=== PATIENT | male | born 1965 | race Caucasian/White ===

== ENCOUNTER 2016-12-18 15:09 | Emergency (ER) | payer OTHER ==
[~2016-12-18] VITALS: Ht 180.3 cm; Wt 82.4 kg
[~2016-12-18 15:09] MED LIST: CELEXA20 MG PO; CLONAZEPAM0.5 MG PO; EFFEXOR75 MG PO; LOPRESSOR25 MG PO; METOPROLOL TART25 MG PO; VENLAFAXINE HC150 M1 PO
[2016-12-18 16:43] LABS: HEMATOCRIT 34.2 % (38.0-50.0); MCH 29.3 PG (29.0-34.0); MCHC 32.7 G/DL (30.0-36.0); MCV 89.5 FL (86-99); MEAN PLAT.VOLUME 9.2 uM^3 (9.0-12.4); PLATELET COUNT 233 K/uL (156-360); RBC DIS.WIDTH-CV 13.9 % (11.8-14.6); RBC DIS.WIDTH-SD 45.1 % (39-53); RED BLOOD COUNT 3.82 M/uL (4.00-5.50); WHITE BLOOD COUNT 7.4 K/uL (4.1-10.2)
[2016-12-18 17:00] LABS: CHLORIDE 112 mEq/L (99-109); SODIUM 138 mEq/L (136-147)
[2016-12-18 17:02] LABS: GLUCOSE 109 mg/dL (70-99)
[2016-12-18 17:03] LABS: ANION GAP 6 MEQ/L (2-14)
[2016-12-18 17:04] LABS: TOTAL BILIRUBIN 0.3 mg/dL (0.0-1.0)
[2016-12-18 17:06] LABS: ALKALINE PHOSPHATASE 67 IU/L (3-129); GFR ESTIMATE (CALCULATED) 9 mL/min/
[2016-12-18 17:07] LABS: UREA NITROGEN (BUN) 56 mg/dL (9-23)
[2016-12-18 17:25] LABS: POTASSIUM 6.2 mEq/L (3.7-5.4)
[2016-12-18 19:02] VITALS: BP 196/127
== END 2016-12-18 19:04 | disposition left against medical advice (07) ==
LOC: EME → EDBD 15:09 → EDSEX 15:09 → EME 19:04
PROVIDERS: Emergency Medicine
DX: R51 Headache (principal); I10 Essential (primary) hypertension; E87.5 Hyperkalemia; N19 Unspecified kidney failure; Z91.15 Patient's noncompliance with renal dialysis
CPT/HCPCS: 70450; 80053; 85027; 93005; 99281; 99285; J2765; J3010; J3030

== ENCOUNTER 2017-01-03 19:40 | Emergency (ER) | payer OTHER ==
[~2017-01-03] VITALS: Ht 177.8 cm; Wt 76.0 kg
[2017-01-03 22:37] LABS: ADD MIUA? YES; BILIRUBIN NEGATIVE; BLOOD SMALL; COLOR STRAW ((YELLOW)); GLUCOSE (STRIP) 50; KETONES NEGATIVE; LEUKOCYTES NEGATIVE; NITRITE NEGATIVE; PROTEIN (STRIP) >=500; SPECIFIC GRAVITY 1.011 (1.000-1.030); UROBILINOGEN 0.2 MG/DL (0.2-1.0)
[2017-01-03 22:55] LABS: BACTERIA RARE /HPF; EPITHELIAL CELLS RARE /HPF; MUCUS TRACE /LPF; RED BLOOD CELLS 0-5 /HPF (0-5); UCUL ADDED? NO; WHITE BLOOD CELLS 0-5 /HPF (0-5)
[2017-01-03 23:06] LABS: HEMATOCRIT 34.7 % (38.0-50.0); MCH 29.7 PG (29.0-34.0); MCHC 34.3 G/DL (30.0-36.0); MCV 86.5 FL (86-99); PLATELET COUNT 253 K/uL (156-360); RBC DIS.WIDTH-CV 13.6 % (11.8-14.6); RBC DIS.WIDTH-SD 42.8 % (39-53); RED BLOOD COUNT 4.01 M/uL (4.00-5.50); WHITE BLOOD COUNT 10.6 K/uL (4.1-10.2)
[2017-01-03 23:19] LABS: CHLORIDE 110 mEq/L (99-109); SODIUM 137 mEq/L (136-147)
[2017-01-03 23:20] LABS: GLUCOSE 105 mg/dL (70-99)
[2017-01-03 23:21] LABS: AMPHETAMINE NEGATIVE (500 ng/mL); BARBITURATES NEGATIVE (200 ng/mL); BENZODIAZEPINES NEGATIVE (150 ng/mL); COCAINE NEGATIVE (150 ng/mL); INTERNAL CONTROLS VALID? YES; METHADONE NEGATIVE (200 ng/mL); METHAMPHETAMINE NEGATIVE (500 ng/mL); OPIATES (MORPHINE) NEGATIVE (100 ng/mL); OXYCODONE NEGATIVE (100 ng/mL); PHENCYCLIDINE NEGATIVE (25 ng/mL); PROPOXYPHENE NEGATIVE (300 ng/mL); THC CANNABINOIDS NEGATIVE (50 ng/mL); TRICYCLIC ANTIDEPRESSANTS NEGATIVE (300 ng/mL)
[2017-01-03 23:22] LABS: ANION GAP 12 MEQ/L (2-14)
[2017-01-03 23:24] LABS: GFR ESTIMATE (CALCULATED) 8 mL/min/; SERUM ETHYL ALCOHOL < 10 mg/dL
[2017-01-03 23:26] LABS: UREA NITROGEN (BUN) 76 mg/dL (9-23)
[2017-01-03 23:27] LABS: SALICYLATE < 5.0 MG/DL (15-30)
[2017-01-03 23:42] VITALS: BP 174/113
== END 2017-01-03 23:44 | disposition home or self-care (01) ==
LOC: EME 19:40
PROVIDERS: Emergency Medicine
DX: F32.9 Major depressive disorder, single episode, unspecified (principal); F41.9 Anxiety disorder, unspecified; F60.9 Personality disorder, unspecified; I12.9 Hypertensive chronic kidney disease with stage 1 through stage 4 chronic kidney disease, or unspecified chronic kidney disease; N18.9 Chronic kidney disease, unspecified
CPT/HCPCS: 80048; 81003; 85027; 90837; 99281; 99285; G0480

== ENCOUNTER 2017-01-25 12:45 | Observation (INO) | payer OTHER ==
[~2017-01-25] VITALS: Ht 180.3 cm; Wt 76.3 kg
[2017-01-25 14:23] LABS: BASOPHIL COUNT 0.1 K/uL (0-0.1); EOSINOPHIL (%) 0.1 % (0-5); HEMATOCRIT 38.4 % (38.0-50.0); IMMATURE GRANULOCYTE (%) 0.4 % (0.0-0.7); IMMATURE GRANULOCYTE COUNT 0.1 K/uL; INSTRUMENT ABS NEUTROPHIL CT 8.3 K/uL; LYMPHOCYTE COUNT 1.7 K/uL (1.0-2.8); MCH 29.4 PG (29.0-34.0); MCHC 34.6 G/DL (30.0-36.0); MCV 84.8 FL (86-99); MONOCYTE (%) 10.4 % (3-12); MONOCYTE COUNT 1.2 K/uL (0-0.8); NEUTROPHIL (%) 73.5 % (45-76); NEUTROPHIL COUNT 8.3 K/uL (1.8-6.4); PLATELET COUNT 271 K/uL (156-360); RBC DIS.WIDTH-CV 13.1 % (11.8-14.6); RBC DIS.WIDTH-SD 40.3 % (39-53); RED BLOOD COUNT 4.53 M/uL (4.00-5.50); WHITE BLOOD COUNT 11.3 K/uL (4.1-10.2)
[2017-01-25 14:32] LABS: CHLORIDE 98 mEq/L (99-109); SODIUM 141 mEq/L (136-147)
[2017-01-25 14:33] LABS: GLUCOSE 93 mg/dL (70-99)
[2017-01-25 14:35] LABS: ANION GAP 17 MEQ/L (2-14)
[2017-01-25 14:37] LABS: GFR ESTIMATE (CALCULATED) 11 mL/min/; SERUM ETHYL ALCOHOL < 10 mg/dL
[2017-01-25 14:38] LABS: UREA NITROGEN (BUN) 49 mg/dL (9-23)
[2017-01-25 15:06] LABS: POINT-OF-CARE METER ID UU13113702
[2017-01-25 15:23] LABS: TROP-I INTERPRETATION NEGATIVE; TROPONIN-I 0.01 ng/mL (0.0-0.30)
[2017-01-25 17:12] LABS: ADD MIUA? YES; BILIRUBIN NEGATIVE; BLOOD NEGATIVE; COLOR YELLOW ((YELLOW)); GLUCOSE (STRIP) 50; KETONES NEGATIVE; LEUKOCYTES NEGATIVE; NITRITE NEGATIVE; PROTEIN (STRIP) >=500; UROBILINOGEN 0.2 MG/DL (0.2-1.0)
[2017-01-25 17:15] LABS: BACTERIA RARE /HPF; EPITHELIAL CELLS NONE SEEN /HPF; MUCUS NONE SEEN /LPF; RED BLOOD CELLS 0-5 /HPF (0-5); WHITE BLOOD CELLS 0-5 /HPF (0-5)
[2017-01-25 17:21] LABS: AMPHETAMINE NEGATIVE (500 ng/mL); BARBITURATES NEGATIVE (200 ng/mL); BENZODIAZEPINES NEGATIVE (150 ng/mL); COCAINE NEGATIVE (150 ng/mL); INTERNAL CONTROLS VALID? YES; METHADONE NEGATIVE (200 ng/mL); METHAMPHETAMINE NEGATIVE (500 ng/mL); OPIATES (MORPHINE) NEGATIVE (100 ng/mL); OXYCODONE NEGATIVE (100 ng/mL); PHENCYCLIDINE NEGATIVE (25 ng/mL); PROPOXYPHENE NEGATIVE (300 ng/mL); THC CANNABINOIDS NEGATIVE (50 ng/mL); TRICYCLIC ANTIDEPRESSANTS NEGATIVE (300 ng/mL)
[2017-01-25] MEDS ORDERED: VENLAFAXINE225 MG PO (18:00)
[2017-01-25] MEDS ORDERED: LIDOCAINE HCL35 GM TP ×2 (18:01→18:03)
[2017-01-25] MEDS ORDERED: VELTASSA8.4 GM PO (18:02)
[2017-01-25] MEDS ORDERED: DITROPAN XL5 MG PO (18:03)
[2017-01-25] MEDS ORDERED: PROSCAR5 MG PO (18:03)
[2017-01-25] MEDS ORDERED: NORVASC5 MG PO (18:04)
[2017-01-25] MEDS ORDERED: TYLENOL REGULA325 MG PO (18:04)
[2017-01-25] MEDS ORDERED: XANAX0.5 MG PO (18:04)
[2017-01-25 20:14] VITALS: BP 134/79
[2017-01-25 22:24] LABS: TROP-I INTERPRETATION NEGATIVE; TROPONIN-I 0.02 ng/mL (0.0-0.30)
[2017-01-26 00:19] VITALS: BP 142/85
[2017-01-26 04:30] VITALS: BP 134/87
[2017-01-26 04:46] LABS: TROP-I INTERPRETATION NEGATIVE; TROPONIN-I 0.01 ng/mL (0.0-0.30)
[2017-01-26 08:19] VITALS: BP 124/80; BP 138/82
[2017-01-26 08:20] VITALS: BP 132/91
[2017-01-26 09:32] LABS: ANION GAP 12 MEQ/L (2-14); CHLORIDE 103 MEQ/L (99-109); GLUCOSE 102 mg/dL (70-99); SAMPLE HEMOLYSIS CHECK 0; SAMPLE ICTERIC CHECK 0; SAMPLE LIPEMIA CHECK 0; SODIUM 139 MEQ/L (136-147); UREA NITROGEN (BUN) 57 mg/dL (9-23)
[2017-01-26 09:34] LABS: GFR ESTIMATE (CALCULATED) 9 mL/min/; POTASSIUM 4.9 MEQ/L (3.7-5.4)
[2017-01-26] MEDS ORDERED: XANAX0.25 MG PO (11:32)
== END 2017-01-26 14:27 | disposition home or self-care (01) ==
LOC: EME 12:45 → 5WEST 17:32 → EDOF 17:32 → ENRESERV 17:36 → 5WEST 20:00
PROVIDERS: Emergency Medicine; Internal Medicine; Nurse Practitioner Adult Health
DX: R55 Syncope and collapse (principal); N02.8 Recurrent and persistent hematuria with other morphologic changes; Q60.0 Renal agenesis, unilateral; N18.6 End stage renal disease; Z99.2 Dependence on renal dialysis; F41.9 Anxiety disorder, unspecified; R06.02 Shortness of breath; F41.0 Panic disorder [episodic paroxysmal anxiety]
CPT/HCPCS: 71010; 80048; 81003; 82948; 84484; 85025; 90839; 93005; 99281; 99284; G0378; G0480; J1644; J7030

== ENCOUNTER 2017-01-31 12:06 | Emergency (ER) | payer OTHER ==
[~2017-01-31] VITALS: Ht 180.3 cm; Wt 79.1 kg
[~2017-01-31 12:06] MED LIST changes: +DITROPAN XL5 MG PO; +LIDOCAINE HCL35 GM TP; +NORVASC5 MG PO; +PROSCAR5 MG PO; +TYLENOL REGULA325 MG PO; +VELTASSA8.4 GM PO; +VENLAFAXINE225 MG PO; +XANAX0.25 MG PO; +XANAX0.5 MG PO
[2017-01-31 13:04] LABS: TROP-I INTERPRETATION NEGATIVE; TROPONIN-I < 0.01 ng/mL (0.0-0.30)
[2017-01-31 13:06] LABS: CHLORIDE 100 mEq/L (99-109); POTASSIUM 5.5 mEq/L (3.7-5.4); SODIUM 138 mEq/L (136-147)
[2017-01-31 13:07] LABS: GLUCOSE 77 mg/dL (70-99)
[2017-01-31 13:09] LABS: ANION GAP 13 MEQ/L (2-14)
[2017-01-31 13:10] LABS: SERUM ETHYL ALCOHOL < 10 mg/dL
[2017-01-31 13:11] LABS: GFR ESTIMATE (CALCULATED) 10 mL/min/
[2017-01-31 13:12] LABS: UREA NITROGEN (BUN) 41 mg/dL (9-23)
[2017-01-31 14:29] LABS: EOSINOPHIL (%) 0.2 % (0-5); HEMATOCRIT 36.6 % (38.0-50.0); IMMATURE GRANULOCYTE (%) 0.5 % (0.0-0.7); IMMATURE GRANULOCYTE COUNT 0.1 K/uL; INSTRUMENT ABS NEUTROPHIL CT 6.6 K/uL; LYMPHOCYTE COUNT 2.1 K/uL (1.0-2.8); MCH 29.3 PG (29.0-34.0); MCHC 32.8 G/DL (30.0-36.0); MEAN PLAT.VOLUME 9.4 uM^3 (9.0-12.4); MONOCYTE COUNT 1.1 K/uL (0-0.8); NEUTROPHIL (%) 67.1 % (45-76); NEUTROPHIL COUNT 6.6 K/uL (1.8-6.4); PLATELET COUNT 255 K/uL (156-360); RBC DIS.WIDTH-SD 42.6 % (39-53); WHITE BLOOD COUNT 9.9 K/uL (4.1-10.2)
[2017-01-31 14:30] LABS: MCV 89.3 FL (86-99)
[2017-01-31 15:34] VITALS: BP 1147/80
[2017-01-31] MEDS ORDERED: KLONOPIN0.5 M1 PO (22:37)
== END 2017-01-31 15:36 | disposition home or self-care (01) ==
LOC: EME 12:06
PROVIDERS: Emergency Medicine
DX: F41.0 Panic disorder [episodic paroxysmal anxiety] (principal); I12.0 Hypertensive chronic kidney disease with stage 5 chronic kidney disease or end stage renal disease; N18.6 End stage renal disease; Z99.2 Dependence on renal dialysis; Z90.5 Acquired absence of kidney; E87.5 Hyperkalemia
CPT/HCPCS: 71010; 80048; 81003; 84484; 85025; 93005; 99281; 99284; G0480

== ENCOUNTER 2017-01-31 18:26 | Emergency (ER) | payer OTHER ==
[~2017-01-31] VITALS: Ht 177.8 cm; Wt 76.8 kg
[2017-01-31 20:16] LABS: MCH 29.2 PG (29.0-34.0); MCHC 33.2 G/DL (30.0-36.0); MCV 87.9 FL (86-99); MEAN PLAT.VOLUME 9.2 uM^3 (9.0-12.4); PLATELET COUNT 241 K/uL (156-360); RBC DIS.WIDTH-SD 41.9 % (39-53); RED BLOOD COUNT 4.21 M/uL (4.00-5.50); WHITE BLOOD COUNT 10.6 K/uL (4.1-10.2)
[2017-01-31 20:31] LABS: CHLORIDE 99 mEq/L (99-109); POTASSIUM 4.8 mEq/L (3.7-5.4)
[2017-01-31 20:32] LABS: SODIUM 138 mEq/L (136-147)
[2017-01-31 20:35] LABS: ANION GAP 12 MEQ/L (2-14)
[2017-01-31 20:36] LABS: GLUCOSE 164 mg/dL (70-99)
[2017-01-31 20:37] LABS: GFR ESTIMATE (CALCULATED) 9 mL/min/
[2017-01-31 20:38] LABS: UREA NITROGEN (BUN) 43 mg/dL (9-23)
[2017-01-31 22:04] LABS: TROP-I INTERPRETATION NEGATIVE; TROPONIN-I < 0.01 ng/mL (0.0-0.30)
[2017-01-31] MEDS ORDERED: KLONOPIN0.5 M1 PO (22:37)
[2017-01-31 23:10] VITALS: BP 148/98
== END 2017-01-31 23:10 | disposition home or self-care (01) ==
LOC: EME 18:26
DX: R55 Syncope and collapse (principal); R06.00 Dyspnea, unspecified; F41.0 Panic disorder [episodic paroxysmal anxiety]; E11.9 Type 2 diabetes mellitus without complications; Z99.2 Dependence on renal dialysis
CPT/HCPCS: 80048 91; 84484; 85027; 99281; 99284

== ENCOUNTER 2017-07-23 12:55 | Day surgery (SDC) | payer OTHER ==
[~2017-07-23] VITALS: Ht 180.3 cm; Wt 82.5 kg
[~2017-07-23 12:55] MED LIST changes: +ABILIFY10 MG PO; +KLONOPIN0.5 M1 PO; +LABETALOL HCL100 MG PO; +SENSIPAR30 MG PO
== END 2017-07-23 15:39 | disposition home or self-care (01) ==
LOC: CATH 12:55
DX: T82.858A Stenosis of other vascular prosthetic devices, implants and grafts, initial encounter (principal); I12.0 Hypertensive chronic kidney disease with stage 5 chronic kidney disease or end stage renal disease; N18.6 End stage renal disease; Z99.2 Dependence on renal dialysis; Z82.49 Family history of ischemic heart disease and other diseases of the circulatory system; Y83.2 Surgical operation with anastomosis, bypass or graft as the cause of abnormal reaction of the patient, or of later complication, without mention of misadventure at the time of the procedure
CPT/HCPCS: 87641; C1725; C1769; C1894; J1644; J2250; J3010

== ENCOUNTER 2017-11-20 13:16 | Emergency (ER) | payer OTHER ==
[~2017-11-20] VITALS: Ht 154.9 cm; Wt 72.8 kg
[2017-11-20 13:49] LABS: HEMATOCRIT 44.4 % (38.0-50.0); HEMOGLOBIN 15.7 G/DL (12.5-16.6); MCH 32.4 PG (29.0-34.0); MCHC 35.4 G/DL (30.0-36.0); MCV 91.7 FL (86-99); PLATELET COUNT 273 K/uL (156-360); RBC DIS.WIDTH-CV 12.8 % (11.8-14.6); RBC DIS.WIDTH-SD 43.1 % (39-53); RED BLOOD COUNT 4.84 M/uL (4.00-5.50)
[2017-11-20 13:58] LABS: CHLORIDE 95 mEq/L (99-109); POTASSIUM 4.2 mEq/L (3.7-5.4); SODIUM 136 mEq/L (136-147)
[2017-11-20 14:00] LABS: GLUCOSE 146 mg/dL (70-99)
[2017-11-20 14:04] LABS: CREATININE 7.3 mg/dL (0.6-1.3); GFR ESTIMATE (CALCULATED) 8 mL/min/ (58.99-99999)
[2017-11-20 14:05] LABS: UREA NITROGEN (BUN) 35 mg/dL (9-23)
[2017-11-20 18:32] VITALS: BP 123/80
== END 2017-11-20 18:34 | disposition home or self-care (01) ==
LOC: EME 13:16
PROVIDERS: Emergency Medicine
DX: E86.0 Dehydration (principal); F41.9 Anxiety disorder, unspecified; F32.9 Major depressive disorder, single episode, unspecified; Z99.2 Dependence on renal dialysis
CPT/HCPCS: 80048; 85027; 93005; 99281; 99284; J7040